=== PATIENT | male | born 1960 | race Caucasian/White ===

== ENCOUNTER 2017-11-29 08:31 | Inpatient (IN) | payer OTHER ==
--- NOTE | 2017-11-29 08:47 | PDOC ---
History of Present Illness - General Chief Complaint: Chest Pain Stated Complaint: CHEST PAIN Time Seen by Provider: 11/29/17 08:47 History Source: Patient Exam Limitations: No Limitations - History of Present Illness Initial Comments: 11/29/17 09:18 Mr. Carlin is a 57 yo M with a hx Past History - Past Medical History Allergies/Adverse Reactions: Allergies Allergy/AdvReac Type Severity Reaction Status Date / Time No Known Allergies Allergy Verified 11/29/17 08:54 Home Medications: Ambulatory Orders No Home Medications 0 dose .ROUTE UTDICT 05/24/12 Anemia: No Asthma: No Cancer: No COPD: No Diabetes: No HTN: No Hypercholesterolemia: No - Suicide/Smoking/Psychosocial Hx Smoking Status: No Smoking History: Never smoked Number of Cigarettes Smoked Daily: 0 Hx Alcohol Use: No Drug/Substance Use Hx: No Substance Use Type: None
[2017-11-29 08:58] VITALS: BMI 25.3
[2017-11-29] MEDS ORDERED: PANTOPRAZOLE SODIUM 40 MG VIAL IVPUSH ONE (09:17)
--- NOTE | 2017-11-29 09:28 | PDOC ---
Attending Attestation - HPI HPI: 11/29/17 09:35 The patient is a 57 year old male with no significant PMH of who presents to the emergency department with left sided chest pain for 2 days. The patient reports that he experienced some associated shortness of breath with his left sided chest pain. The patient states that his chest pain was relieved with rest and a nitro treatment. He states that it dissipated but returned again and lasted for about 8 minutes. The patient reports another episode of chest pain this morning and associated lightheadedness and weakness. The patient denies any episode like this in the past. He also reports kenya episodes of black stool 1 days ago. He denies any diarrhea or constipation. He states that his last colonoscopy was 1 year ago b which polyps were found. The patient denies any other symptoms. He denies any fever, chills, nausea, vomit or urinary symptoms. He denies headache,dizziness, abdominal pain, or earache. The patient denies any other complaints. Gastro: Dr. Rothman PCP: Dr. Thompson Documentation prepared by Payal Mcgill, acting as medical lab tech instructor for Yvan Valdez MD. <Payal Mcgill - Last Filed: 11/29/17 09:35> - Resident Resident Name: Earl Otto - ED Attending Attestation I have performed the following: I have examined & evaluated the patient, The case was reviewed & discussed with the resident, I agree w/resident's findings & plan, Exceptions are as noted - HPI HPI: 11/29/17 09:23 57 year old male c/ no pmh (have not seen Dr. Alexei Thompson in some time) presents with chest pain and SOB. Since yesterday, the patient has been endorsing intermittent chest pressure with SOB. Has been feeling lightheaded and general weakness. Denies fevers, chills. Noted several dark tarry stools since yesterday. Denies abdominal pain. Does drink vodka often. Last colonoscopy and endoscopy by Dr. Rothman reportedly 1 year ago, with some polyps. Pt took a nitroglycerin (given by a family member) and relief of chest pain. - Physicial Exam PE: 11/29/17 09:27 GENERAL: Awake, alert, and fully oriented, in no acute distress HEAD: No signs of trauma EYES: EOMI, sclera anicteric, conjunctiva clear ENT: Auricles normal inspection, hearing grossly normal, nares patent, Moist mucosa NECK: Normal ROM, supple LUNGS: Breath sounds equal, clear to auscultation bilaterally. No wheezes, and no crackles HEART: Regular rate and rhythm, normal S1 and S2, no murmurs, rubs or gallops ABDOMEN: Soft, nontender, No guarding, no rebound. No masses EXTREMITIES: Normal range of motion, no edema. No clubbing or cyanosis. No cords, erythema, or tenderness NEUROLOGICAL: Cranial nerves II through XII grossly intact. Normal speech, normal gait SKIN: Warm, Dry, normal turgor, no rashes or lesions noted. - Medical Decision Making 11/29/17 09:28 Vital Signs Temp Pulse Resp BP Pulse Ox 98.4 F 84 16 134/78 100 11/29/17 08:32 11/29/17 08:32 11/29/17 08:32 11/29/17 08:32 11/29/17 08:32 The patient will need to be rule out SC. Will need troponin, ECG, chest xray. Will hold off on aspirin until we clarify these dark tarry stools. Pt's symptoms may potentially be 2/2 to UGIB. Risk factor is alcohol. Will give protonix. Guiac stool. Admit. 11/29/17 10:12 CBC WBC 5.3 K/mm3 (4.0-10.0) 11/29/17 09:50 RBC 3.24 M/mm3 (4.00-5.60) L 11/29/17 09:50 Hgb 11.5 GM/dL (11.7-16.9) L 11/29/17 09:50 Hct 32.6 % (35.4-49) L D 11/29/17 09:50 MCV 100.5 fl (80-96) H 11/29/17 09:50 MCH 35.3 pg (25.7-33.7) H 11/29/17 09:50 MCHC 35.1 g/dl (32.0-35.9) 11/29/17 09:50 RDW 12.4 % (11.9-15.9) 11/29/17 09:50 Plt Count 138 K/MM3 (134-434) 11/29/17 09:50 MPV 9.4 fl (7.5-11.1) 11/29/17 09:50 Absolute Neuts (auto) 3.5 # 11/29/17 09:50 Neutrophils % 67.4 % (42.8-82.8) 11/29/17 09:50 Lymphocytes % 23.6 % (8-40) 11/29/17 09:50 Monocytes % 5.5 % (3.8-10.2) 11/29/17 09:50 Eosinophils % 2.5 % (0-4.5) 11/29/17 09:50 Basophils % 1.0 % (0-2.0) 11/29/17 09:50 Nucleated RBC % 0 % (0-0) 11/29/17 09:50 Guiac positive. Start protonix drip. Consult Dr. Rothman. Admit. 11/29/17 10:[address] Rothman. He will see patient as an inpatient. 11/29/17 11:21 Will defer on aspirin given UGIB <Yvan Valdez - Last Filed: 11/29/17 11:21> Heart Score/ECG Review - History History: Moderately suspicious - Electrocardiogram EKG: Non specific repolarization disturbance - Age Age: 45-65 - Risk Factors Based on the list above the patient has:: 1-2 risk factors #1 ECG reviewed & interpreted by me at: 08:40 11/29/17 09:23 NSR 75, no std/alex, T wave flat aVL, TWI V2, normal axis, normal intervals, QTC 419 msec <Yvan Valdez - Last Filed: 11/29/17 11:21>
[2017-11-29 09:57] LABS: EOS % 2.5 % (0-4.5); HEMATOCRIT 32.6 % (35.4-49); HEMOGLOBIN 11.5 GM/dL (11.7-16.9); LYMPH % 23.6 % (8-40); MCH 35.3 pg (25.7-33.7); MCHC 35.1 g/dl (32.0-35.9); MEAN CELL VOLUME 100.5 fl (80-96); MEAN PLT VOLUME 9.4 fl (7.5-11.1); MONO % 5.5 % (3.8-10.2); NEUT % 67.4 % (42.8-82.8); PLATELET COUNT 138 K/MM3 (134-434); RBC 3.24 M/mm3 (4.00-5.60); RDW 12.4 % (11.9-15.9); WHITE BLOOD COUNT 5.3 K/mm3 (4.0-10.0)
[2017-11-29 10:24] LABS: INR 0.91 (0.83-1.09); PROTHROMBIN TIME (PATIENT) 10.3 SEC (9.7-13.0)
[2017-11-29 10:28] LABS: ALBUMIN 3.4 g/dl (3.4-5.0); ANION GAP 6 (8-16); BILIRUBIN,TOTAL 0.5 mg/dL (0.2-1.0); BLOOD UREA NITROGEN 25 mg/dL (7-18); CALCIUM 8.4 mg/dL (8.5-10.1); CHLORIDE 109 mmol/L (98-107); CO2 27 mmol/L (21-32); CREATININE 0.6 mg/dL (0.7-1.3); GLUCOSE,RANDOM 98 mg/dL (74-106); SGPT/ALT 31 U/L (12-78); SODIUM 142 mmol/L (136-145); TOT PROT 6.3 g/dl (6.4-8.2)
[2017-11-29 10:31] LABS: ALK PHOS 50 U/L (45-117)
[2017-11-29 10:33] LABS: POTASSIUM 4.8 mmol/L (3.5-5.1); SGOT/AST 26 U/L (15-37)
--- NOTE | 2017-11-29 11:20 | PDOC ---
*Physical Exam - Vital Signs Last Vital Signs Temp Pulse Resp BP Pulse Ox 98.4 F 84 16 134/78 100 11/29/17 08:32 11/29/17 08:32 11/29/17 08:32 11/29/17 08:32 11/29/17 08:32 ED Treatment Course - LABORATORY CBC & Chemistry Diagram: 11/29/17 09:50 11/29/17 09:50 - ADDITIONAL ORDERS Additional order review: Laboratory Results 11/29/17 11/29/17 11/29/17 09:55 09:50 09:50 PT with INR INR Sodium Potassium Chloride Carbon Dioxide Anion Gap BUN Creatinine Creat Clearance w eGFR Random Glucose Calcium Total Bilirubin AST ALT Alkaline Phosphatase Creatine Kinase Troponin I Total Protein Albumin Stool Occult Blood Positive Blood Type O POSITIVE O POSITIVE Antibody Screen Negative 11/29/17 11/29/17 09:50 09:50 PT with INR 10.30 INR 0.91 Sodium 142 Potassium 4.8 Chloride 109 H Carbon Dioxide 27 Anion Gap 6 L BUN 25 H Creatinine 0.6 L Creat Clearance w eGFR > 60 Random Glucose 98 Calcium 8.4 L Total Bilirubin 0.5 AST 26 D ALT 31 D Alkaline Phosphatase 50 Creatine Kinase 83 Troponin I < 0.02 Total Protein 6.3 L Albumin 3.4 Stool Occult Blood Blood Type Antibody Screen 11/29/17 09:50 RBC 3.24 L MCV 100.5 H MCHC 35.1 RDW 12.4 MPV 9.4 Neutrophils % 67.4 Lymphocytes % 23.6 Monocytes % 5.5 Eosinophils % 2.5 Basophils % 1.0 *DC/Admit/Observation/Transfer Diagnosis at time of Disposition: UGIB (upper gastrointestinal bleed) Chest pain Qualifiers: Chest pain type: unspecified Qualified Code(s): R07.9 - Chest pain, unspecified - Discharge Dispostion Condition at time of disposition: Stable Decision to Admit order: Yes - Referrals Referrals: Alexei Thompson MD [Primary Care Provider] - - Patient Instructions - Post Discharge Activity
[2017-11-29] MEDS ORDERED: PANTOPRAZOLE SODIUM 40 MG VIAL ONE ×5 (11:28→22:55)
--- NOTE | 2017-11-29 11:55 | HP ---
CHIEF COMPLAINT: left sided chest pain and tarry stools PCP: used to follow with Dr. Thompson GI: Dr. Rothman HISTORY OF PRESENT ILLNESS: 57 yr old with no significant pmhx (lack of recent medical follow-up) presents to ED with pressure-like continuous nonradiating left sided chest pain, dizziness, and sob associated with black tarry stools since yesterday morning. He had 5 episodes of tarry stool yesterday and one episode this morning prior to coming to ED, no episodes in ED. chest pain is worse with exertion, especially getting up and walking around, feels more comfortable when laying in bed. has not been able to eat anything due to loss of appetite since yesterday morning. daughter gave him 1 dose of nitro sl from her mother's medications which helped with the chest pain but did not completely relieve the pain. has been in his usual state of health as of Wednesday. denies recent NSAID use, abdominal pain/cramping, diarrhea, constipation, vomiting, nausea, headache, blurry vision, fever. ER course was notable for: (1) consult called to Dr. Rothman who knows the pt, will see pt as inpatient (2) consult called to dr. Gordon (3) protonix drip Recent Travel: none PAST MEDICAL HISTORY: no diagnosed medical hx, no previous hx of similar episodes. PAST SURGICAL HISTORY: had an endoscopy/colonoscopy [address] rothman and recalls being told he had polyps. 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 Smoking: quit 8 yrs ago, smoked 1/2pk per day staring at age 15 Alcohol: drinks 1 shot of vodka daily, last drink Wednesday night. does not routinely get intoxicated, has not been intoxicated in last 3 months Drugs: no illicit drug use. Family History: father from lung cancer at age 62, dx'd at age 61, he was a chronic smoker. denies GI cancers, HTN, DM in the family. Allergies No Known Allergies Allergy (Verified 11/29/17 08:54) HOME MEDICATIONS: Home Medications Medication Instructions Recorded No Home Medications 0 dose .ROUTE UTDICT 05/24/12 REVIEW OF SYSTEMS CONSTITUTIONAL: Present: loss of appetite, pt says he doesn't feel like he has lost weight but daughtet at bedside says he looks thinner in the last 3 months. Absent: fever, chills, diaphoresis, generalized weakness, malaise, weight change HEENT: Present: eye pain- feels like he has dry eyes since yesterday Absent: rhinorrhea, nasal congestion, throat pain, throat swelling, difficulty swallowing, mouth swelling, ear pain, visual changes CARDIOVASCULAR: Present:chest pain,lightheadedness, Absent: syncope, palpitations, irregular heart rate, peripheral edema RESPIRATORY: Present: shortness of breath,dyspnea with exertion Absent: cough, , orthopnea, wheezing, stridor, hemoptysis GASTROINTESTINAL: Present: melena, Absent: abdominal pain, abdominal distension, nausea, vomiting, diarrhea, constipation, hematochezia GENITOURINARY: Absent: dysuria, frequency, urgency, hesitancy, hematuria, flank pain, MUSCULOSKELETAL: Absent: myalgia, arthralgia, joint swelling, back pain, neck pain SKIN: Absent: rash, itching, pallor HEMATOLOGIC/IMMUNOLOGIC: Absent: easy bleeding, easy bruising, lymphadenopathy, frequent infections ENDOCRINE: Absent: unexplained weight gain, unexplained weight loss, heat intolerance, cold intolerance NEUROLOGIC: Absent: headache, focal weakness or paresthesias, dizziness, unsteady gait, seizure, mental status changes, bladder or bowel incontinence PHYSICAL EXAMINATION Vital Signs - 24 hr 11/29/17 08:32 Temperature 98.4 F Pulse Rate 84 Respiratory 16 Rate Blood Pressure 134/78 O2 Sat by Pulse 100 Oximetry (%) GENERAL: Awake, alert, and fully oriented, in no acute distress. HEAD: Normal with no signs of trauma. EYES: Pupils equal, round and reactive to light, extraocular movements intact, sclera anicteric, conjunctiva clear. No lid lag. EARS, NOSE, THROAT: Ears normal, nares patent, oropharynx clear without exudates. Moist mucous membranes. NECK: Normal range of motion, supple without lymphadenopathy, JVD, or masses. LUNGS: Breath sounds equal, clear to auscultation bilaterally. No wheezes, and no crackles. No accessory muscle use. HEART: Regular rate and rhythm, normal S1 and S2 without murmur, rub or gallop. ABDOMEN: Soft, nontender, not distended, normoactive bowel sounds, no guarding, no rebound, no masses. No hepatomegaly or splenomegaly. MUSCULOSKELETAL: Normal range of motion at all joints. No bony deformities or tenderness. No CVA tenderness. UPPER EXTREMITIES: 2+ radial pulses, warm, well-perfused. No cyanosis. No clubbing. No peripheral edema. LOWER EXTREMITIES: 2+ dp pulses, warm, well-perfused. No calf tenderness. No peripheral edema. NEUROLOGICAL: Cranial nerves II-XII intact. Normal speech. facial symmetry, 5/ 5 handgrip, 5/5 strength with extension and flexion in all upper and lower extremity groups.2+ DTR in biceps and patellar. PSYCHIATRIC: Cooperative. Good eye contact. Appropriate mood and affect. SKIN: Warm, dry, normal turgor, no rashes or lesions noted, normal capillary refill. Laboratory Results - last 24 hr 11/29/17 11/29/17 11/29/17 09:50 09:50 09:50 WBC 5.3 RBC 3.24 L Hgb 11.5 L Hct 32.6 L D MCV 100.5 H MCH 35.3 H MCHC 35.1 RDW 12.4 Plt Count 138 MPV 9.4 Absolute Neuts (auto) 3.5 Neutrophils % 67.4 Lymphocytes % 23.6 Monocytes % 5.5 Eosinophils % 2.5 Basophils % 1.0 Nucleated RBC % 0 PT with INR 10.30 INR 0.91 Sodium 142 Potassium 4.8 Chloride 109 H Carbon Dioxide 27 Anion Gap 6 L BUN 25 H Creatinine 0.6 L Creat Clearance w eGFR > 60 Random Glucose 98 Calcium 8.4 L Total Bilirubin 0.5 AST 26 D ALT 31 D Alkaline Phosphatase 50 Creatine Kinase 83 Troponin I < 0.02 Total Protein 6.3 L Albumin 3.4 Stool Occult Blood Blood Type Antibody Screen 11/29/17 11/29/17 11/29/17 09:50 09:50 09:55 WBC RBC Hgb Hct MCV MCH MCHC RDW Plt Count MPV Absolute Neuts (auto) Neutrophils % Lymphocytes % Monocytes % Eosinophils % Basophils % Nucleated RBC % PT with INR INR Sodium Potassium Chloride Carbon Dioxide Anion Gap BUN Creatinine Creat Clearance w eGFR Random Glucose Calcium Total Bilirubin AST ALT Alkaline Phosphatase Creatine Kinase Troponin I Total Protein Albumin Stool Occult Blood Positive Blood Type O POSITIVE O POSITIVE Antibody Screen Negative ASSESSMENT/PLAN: 57 yr old man with no recent medical follow-up presents with chest pain and melena for 1 day admitted to telemetry for further management. #Melena with macrocytic anemia and FOBT+, likely UGI from possible etiliogies: PUD/malignancy/variceal bleed - macrocytosis could be from ETOH use as well. - iron studies, vit b12, Type&screen, trend h/h q6h - consult GI, may need scope pending r.o ACS as hgb currently >7, pending repeat level - protonix drip, npo, maintanence IVF D5-NS @75cc/hr - OOB wth assistance as he is at risk for syncope #Chest pain r.o ACS, possibly from blood loss as well - new ekg changes compared to previous, repeat ekg for dynamic changes, trend trop x2 - echo ordered - discussed with , agrees with telemetry monitoring, trending trops and echo for further evaluation. - check lipid profile and A1c to risk stratify - continuous cardiac monitoring DVT; scds due to acute GI bleed diet: NPO Visit type - Emergency Visit Emergency Visit: Yes ED Registration Date: 11/29/17 Care time: The patient presented to the Emergency Department on the above date and was hospitalized for further evaluation of their emergent condition. - New Patient This patient is new to me today: Yes Date on this admission: 11/29/17 - Critical Care Critical Care patient: No Hospitalist Screening - Colonoscopy Questionnaire Colonoscopy Questionnaire: Colonoscopy Questionnaire - Patient: 50 - 75 years old and never had a screening colonoscopy: No History of colon or rectal polyps, or CA: Yes History of IBD, Crohn's disease or UC: No History of abdominal radiation therapy as a child: No - Relative: 1 with colon or rectal CA, or polyps at age 60 or younger: No Colon or rectal CA diagnosed at age 45 or younger: No Multiple relatives with colon or rectal CA: No - Outcome: Screening Result: Positive Screen
[2017-11-29] MEDS: PANTOPRAZOLE SODIUM 80 MG in SODIUM CHLORIDE 100 ML IVPB SCH ×2 (12:40→23:12)
[2017-11-29] MEDS ORDERED: DEXTROSE 5%-0.45% SALINE 1,000 ML IV SCH (13:30)
--- NOTE | 2017-11-29 13:50 | PN ---
Teaching Attending Note Name of Resident: Nunu Marks ATTENDING PHYSICIAN STATEMENT I saw and evaluated the patient. I reviewed the resident's note and discussed the case with the resident. I agree with the resident's findings and plan as documented with exceptions below. SUBJECTIVE: Daughter at bedside, assisting in interview 57 yom, no PCP in [address] ([address] Thompson earlier), EGD/colonscopy [address] 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 Overall symptoms have been constant, with some worsening while sleeping on the same side. His symptoms have improved but not fully resolved while in the ED. Also 5 episodes of dark tarry stools, soft since yesterday morning but denies any nausea, vomiting, abdominal pain, fevers or chills. Drinks 1 shot of vodka daily , last drink 2 days ago but no prior NSAIDs use or similar history. Currently chest pain improved and reported dizziness when sat up. No further BM in the ED. 12 point ROS done, neg except above. OBJECTIVE: Vital Signs Period Temp Pulse Resp BP Sys/Cross Pulse Ox Last 24 Hr 98.4 F 84 16 134/78 100 Intake & Output 11/26/17 11/27/17 11/28/17 11/29/17 23:59 23:59 23:59 23:59 Weight 162 lb GENERAL: Awake, alert, and fully oriented, in no acute distress. HEAD: Normal with no signs of trauma. EYES: Pupils equal, round and reactive to light, extraocular movements intact, sclera anicteric, conjunctiva clear. No lid lag. EARS, NOSE, THROAT: Ears normal, nares patent, oropharynx clear without exudates. Moist mucous membranes. NECK: soft, supple, no JVD LUNGS: Breath sounds equal, clear to auscultation bilaterally. No wheezes, and no crackles. No accessory muscle use. HEART: S1S2 regular, no rubs or gallops appreciated ABDOMEN: Soft, nontender, not distended, normoactive bowel sounds, no guarding, no rebound, no masses. MUSCULOSKELETAL: Normal range of motion at all joints. No bony deformities or tenderness. No CVA tenderness. UPPER EXTREMITIES: 2+ pulses, warm, well-perfused. No cyanosis. No clubbing. No peripheral edema. LOWER EXTREMITIES: 2+ pulses, warm, well-perfused. No calf tenderness. No peripheral edema. NEUROLOGICAL: Cranial nerves II-XII intact. Normal speech. Gait deferred as patient dizzy on sitting up PSYCHIATRIC: Cooperative. Good eye contact. Appropriate mood and affect. SKIN: Warm, dry, normal turgor, no rashes or lesions noted, normal capillary refill. Home Medications Medication Instructions Recorded No Home Medications 0 dose .ROUTE UTDICT 05/24/12 Active Medications Pantoprazole Sodium 80 mg/ (Sodium Chloride) 100 mls @ 10 mls/hr IVPB Q10H BRYANNA Last Admin: 11/29/17 12:40 Dose: 10 mls/hr Dextrose/Sodium Chloride (D5-1/2ns -) 1,000 mls @ 75 mls/hr IV [facility] Laboratory Results - last 24 hr 11/29/17 11/29/17 11/29/17 09:50 09:50 09:50 WBC 5.3 RBC 3.24 L Hgb 11.5 L Hct 32.6 L D MCV 100.5 H MCH 35.3 H MCHC 35.1 RDW 12.4 Plt Count 138 MPV 9.4 Absolute Neuts (auto) 3.5 Neutrophils % 67.4 Lymphocytes % 23.6 Monocytes % 5.5 Eosinophils % 2.5 Basophils % 1.0 Nucleated RBC % 0 Retic Count PT with INR 10.30 INR 0.91 Sodium 142 Potassium 4.8 Chloride 109 H Carbon Dioxide 27 Anion Gap 6 L BUN 25 H Creatinine 0.6 L Creat Clearance w eGFR > 60 Random Glucose 98 Calcium 8.4 L Ferritin Total Bilirubin 0.5 AST 26 D ALT 31 D Alkaline Phosphatase 50 Creatine Kinase 83 Troponin I < 0.02 Total Protein 6.3 L Albumin 3.4 Vitamin B12 Stool Occult Blood Blood Type Antibody Screen 11/29/17 11/29/17 11/29/17 09:50 09:50 09:50 WBC RBC Hgb Hct MCV MCH MCHC RDW Plt Count MPV Absolute Neuts (auto) Neutrophils % Lymphocytes % Monocytes % Eosinophils % Basophils % Nucleated RBC % Retic Count PT with INR INR Sodium Potassium Chloride Carbon Dioxide Anion Gap BUN Creatinine Creat Clearance w eGFR Random Glucose Calcium Ferritin Total Bilirubin AST ALT Alkaline Phosphatase Creatine Kinase Troponin I Total Protein Albumin Vitamin B12 Cancelled Stool Occult Blood Blood Type O POSITIVE O POSITIVE Antibody Screen Negative 11/29/17 11/29/17 11/29/17 09:50 09:50 09:55 WBC RBC Hgb Hct MCV MCH MCHC RDW Plt Count MPV Absolute Neuts (auto) Neutrophils % Lymphocytes % Monocytes % Eosinophils % Basophils % Nucleated RBC % Retic Count 2.14 H PT with INR INR Sodium Potassium Chloride Carbon Dioxide Anion Gap BUN Creatinine Creat Clearance w eGFR Random Glucose Calcium Ferritin Cancelled Total Bilirubin AST ALT Alkaline Phosphatase Creatine Kinase Troponin I Total Protein Albumin Vitamin B12 Stool Occult Blood Positive Blood Type Antibody Screen EKG NSR, QS in III, T inversion in V2, no acute ST-T changes CXR - no acute process ASSESSMENT AND PLAN: 57 yom with no recent follow up, comes with chest pain and dark tarry stools. -Chest pain, with some typical features, r/o ACS, ?from ongoing bleed and anemia -GI bleed, PUD vs alcohol gastritis vs variceal on differential, r/o malignancy , less likely to be diverticular bleed based on presentation Plan: Repeat EKG, telemetry, cycle cardiac enzymes. 2D echo. Cardiology consult with Dr. Gordon 2 Large bore IV's. Protonix drip, NPO, D5NS, GI Dr. Rothman consulted from the ED, follow up recs. H/h q8h. SCDs in bed Bedrest with BRP with assist for now. Dispo admit to telemetry. Plan discussed with patient and daughter at bedside, all questions answered. Total admit time spent 55 min.
--- NOTE | 2017-11-29 15:25 | CON.CARD ---
Consult Consult Specialty:: Cardiology Referred by:: Dr. Thompson Reason for Consultation:: Chest Pain - History of Present Illness Chief Complaint: Melena and chest pain History of Present Illness: 57M history obtained at bedside from daughter who is a PA. PMH of hyperlipidemia presents to ER with 2 days of melena and central substernal positional CP worse when sitting up, better laying down. +Exertional dizziness x 24 hours. Denies palpitations. Denies LE edema. Denies PND/orthopnea. Denies nausea, diaphoresis. No fever, chills, cough. - History Source History Provided By: Family Member Limitations to Obtaining History: Language Barrier - Past Medical History Cardio/Vascular: Yes: Hyperlipdemia Pulmonary: No: Asthma, Bronchitis, Cancer, COPD, O2 Dependent, Pneumonia, Previously Intubated, Pulmonary Embolus, Pulmonary Fibrosis, Sleep Apnea, Other Gastrointestinal: Yes: Other (Colonic polyps) Hepatobiliary: No: Cirrhosis, Cholelithiasis, Cholecystitis, Choledocholithiasis , Hepatitis A, Hepatitis B, Hepatitis C, Other Renal/: No: Renal Failure, Renal Inusuff, BPH, Cancer, Hematuria, Hemodialysis , Neurogenic Bladder, Renal Calculi, UTI, Other Heme/Onc: No: Anemia, B12 Deficiency, Bleeding Disorder, Cancer, Current Chemotherapy, Current Radiation Therapy, Hemochromatosis, Hypercoaguable State, Myeloproliferative Synd, Sickle Cell Disease, Sickle Cell Trait, Thrombocytopenia, Other Infectious Disease: No: AIDS, C-Diff, Herpes Zoster, HIV, MRSA, STD's, Tuberculosis, VREF, Other Psych: No: Addictions, Anxiety, Bipolar, Depression, Panic, Psychosis, Schizophrenia, Other Musculoskeletal: No: Bursitis, Chronic low back pain, Hemiparesis, Hemiplegia, Osteoarthritis, Paraplegia, Other ENT: No: Allergic Rhinitis, Sinusitis, Other Endocrine: No: [place]'s Disease, [place]'s Disease, Diabetes Insipidus, Diabetes Mellitus, Hyperparathyroidism, Hyperthyroidism, Hypothyroidism, Osteopenia, SIADH, Other Dermatology: No: Basal Cell, Cellulitis, Eczema, Melanoma, Psoriasis, Squamous Cell, Other - Alcohol/Substance Use Hx Alcohol Use: Yes (1 shot Vodka daily) History of Substance Use: reports: None - Smoking History Smoking history: Former smoker (quit 6 years ago) Have you smoked in the past 12 months: No Aproximately how many cigarettes per day: 0 If you are a former smoker, when did you quit?: 2012 - Social History Usual Living Arrangement: Assisted Living 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 Place of : Other History of Recent Travel: No Home Medications - Allergies Allergies/Adverse Reactions: Allergies Allergy/AdvReac Type Severity Reaction Status Date / Time No Known Allergies Allergy Verified 11/29/17 08:54 - Home Medications Home Medications: Ambulatory Orders No Home Medications 0 dose .ROUTE UTDICT 05/24/12 Family Disease History - Family Disease History Family History: Unremarkable (no early CAD or SCD) Review of Systems Findings/Remarks: See HPI - Review of Systems Constitutional: reports: No Symptoms HENT: reports: No Symptoms Neck: reports: No Symptoms Cardiovascular: reports: Chest Pain (positional, constant. Worse sitting up) Gastrointestinal: reports: Melena (x 1 day) Genitourinary: denies: No Symptoms, Burning, Discharge, Dysuria, Flank Pain, Frequency, Hematuria, Incontinence, Lesions, Menses, Pain, Testicular Mass, Testicular Pain, Testicular Swelling, Urgency, Vaginal Bleeding, Other Breasts: denies: No Symptoms Reported, See HPI, Breast Implants, Discharge from Nipple, Lumps, Pain, Skin Changes, Other Musculoskeletal: denies: No Symptoms, Back Pain, Crepitus, Decreased ROM, Extremity Pain, Joint Pain, Joint Swelling, Muscle Pain, Muscle Cramps, Muscle Weakness, Other Integumentary: denies: No Symptoms, Blister, Bruising, Change in Color, Eczema, Erythema, Incision, Lesions, Lump, Pallor, Pruritis, Rash, Wound, Other Neurological: denies: No Symptoms, Change in LOC, Change in Speech, Confusion, Dizziness, Headache, Incoordination, Numbness, Parasthesia, Pre-Existing Deficit , Seizure, Syncope, Tremors, Unsteady Gait, Weakness, Other Endocrine: denies: No Symptoms, Excessive Sweating, Flushing, Increased Hunger, Increased Thirst, Intolerance to Cold, Intolerance to Heat, Unexplained Weight Gain, Unexplained Weight Loss, Other Hematology/Lymphatic: denies: No Symptoms, Easily Bruised, Excessive Bleeding, Swollen Glands, Other Psychiatric: denies: No Symptoms, Altered Sleep Pattern, Anxiety, Depression, Hallucinations, Panic, Paranoia, Suicidal, Other - Risk Factors Known Risk Factors: Yes: Hypercholesterolemia, Smoking Vital Signs: Vital Signs Temperature 98.4 F 08/06/18 08:32 Pulse Rate 76 11/29/17 11:55 Respiratory Rate 18 11/29/17 11:55 Blood Pressure 128/70 11/29/17 11:55 O2 Sat by Pulse Oximetry (%) 98 11/29/17 11:55 Constitutional: Yes: No Distress, Calm Eyes: Yes: Conjunctiva Clear, EOM Intact HENT: Yes: Normocephalic Neck: Yes: Trachea Midline Respiratory: Yes: CTA Bilaterally (no rales or wheezing) Gastrointestinal: Yes: Soft (no rebound or guarding tenderness) Cardiovascular: Yes: Regular Rate and Rhythm JVD: No Carotid Bruit: No PMI: Non-Displaced Heart Sounds: Yes: S1, S2 (RRR. No M/R/G) Edema: No Neurological: Yes: Alert, Oriented ...Motor Strength: WNL Psychiatric: Yes: WNL - Other Data Labs, Other Data: CBC, BMP 11/29/17 09:50 11/29/17 09:50 INR, PTT INR 0.91 (0.83-1.09) 11/29/17 09:50 Troponin, BNP 11/29/17 09:50 Troponin I < 0.02 Troponin, BNP 11/29/17 09:50 Troponin I < 0.02 NSR with non-specific T wave inversion V2 Echo: Pending Imaging - Results Chest X-ray: Report Reviewed EKG: Image Reviewed Problem List - Problems (1) UGIB (upper gastrointestinal bleed) Code(s): K92.2 - GASTROINTESTINAL HEMORRHAGE, UNSPECIFIED (2) Chest pain Code(s): R07.9 - CHEST PAIN, UNSPECIFIED Qualifiers: Chest pain type: unspecified Qualified Code(s): R07.9 - Chest pain, unspecified Assessment/Plan IMP: Melena Chest pain, atypical REC: 1. Atypical chest pain: -positional, constant with no acute ST changes. Present for last 24 hours with initial TnI negative. -Doubt coronary: likely related to GI pathology--> gastritis, perhaps peptic ulcer with referred pain. 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 ECG not consistent with pericarditis -Check echo -Cycle cardiac enzymes -Serial ECGs -Telemetry monitoring -GI eval 2. Melena: -New onset -Follow H/H - GI consult -PPI, NPO Will follow Thank you
[2017-11-29 16:46] LABS: BASO % 0.7 % (0-2.0); EOS % 2.1 % (0-4.5); HEMATOCRIT 30.5 % (35.4-49); HEMOGLOBIN 10.9 GM/dL (11.7-16.9); LYMPH % 28.8 % (8-40); MCH 35.7 pg (25.7-33.7); MCHC 35.6 g/dl (32.0-35.9); MEAN CELL VOLUME 100.5 fl (80-96); MEAN PLT VOLUME 9.2 fl (7.5-11.1); MONO % 5.1 % (3.8-10.2); NEUT % 63.3 % (42.8-82.8); PLATELET COUNT 136 K/MM3 (134-434); RBC 3.04 M/mm3 (4.00-5.60); RDW 12.5 % (11.9-15.9); WHITE BLOOD COUNT 5.2 K/mm3 (4.0-10.0)
--- NOTE | 2017-11-29 16:47 | EKG ---
Test Reason : Blood Pressure : / mmHG Vent. Rate : 073 BPM Atrial Rate : 073 BPM P-R Int : 158 ms QRS Dur : 092 ms QT Int : 392 ms P-R-T Axes : 032 -08 034 degrees QTc Int : 431 ms NORMAL SINUS RHYTHM NORMAL ECG WHEN COMPARED WITH ECG OF 24-MAY-2012 11:36, NO SIGNIFICANT CHANGE WAS FOUND Confirmed by ERMELINDA TRONCOSO MD ([id number]) on 11/29/2017 4:46:51 PM Referred By: JESUS ALBERTO PINEDA Confirmed By:ERMELINDA TRONCOSO MD
[2017-11-29] MEDS: DEXTROSE 5%-NORMAL SALINE 1,000 ML IV SCH (16:52)
[2017-11-29 17:05] LABS: CHOLESTEROL 182 mg/dL (50-200); HDL CHOLESTEROL 55 mg/dL (40-60); TRIGLYCERIDES 122 mg/dL (35-160)
--- NOTE | 2017-11-29 22:06 | CON.GI ---
Consult Consult Specialty:: Gastroenterology Referred by:: Dr Thompson Reason for Consultation:: GI bleed - History of Present Illness Chief Complaint: Melena, lightheaded and chest pain History of Present Illness: 57M with h/o duodenal ulcer associated with H. pylori found at EGD in my office at EGD on 08/18/16 developed melena yesterday morning. He also had GERD above a hiatal hernia at that time. He developed dizziness upon standing and sitting and had to lave Mass yesterday. After several episodes of blood stools that got increasingly looser he came to the ER. He denies hematemesis. He was treated for the HP last year but did return to [facility] earlier this year to bury his mother and may have reacquired it. He does not smoke but does have a highball with dinner nightly. He denies abdominal pain but did sleep awkwardly and did develop a musculoskeletal type of lower retrosternal pain. He has already been evaluated by Dr. Odonnell who does not feel that it is cardiac in origin. He did have a cecal adenoma removed at colonoscopy in 2011 and had GERD above a hiatal hernia found at EGD in 2007 when he was treated for HP for the first time. He had a rectal hyperplastic polyp removed during his last colonoscopy on 08/25/16. - History Source History Provided By: Patient Limitations to Obtaining History: No Limitations - Past Medical History Cardio/Vascular: Yes: Hyperlipdemia, Other (Rheumatic fever as a child) Gastrointestinal: Yes: Gastritis (H pylori gastritis 2007, 2016), Peptic Ulcer Disease (Duodenal bulb ulcer at EGD 08/18/16), Other (Colonic polyps including cecal adenoma 2011) Additional Medical History: strabismus - Past Surgical History Past Surgical History: Yes: Arthrosocopy (knee), Colonoscopy, Upper Endoscopy Additional Surgical History: left thumb base skin flap. left shoulder surgery - Alcohol/Substance Use Hx Alcohol Use: Yes (1 shot Vodka daily) History of Substance Use: reports: None - Smoking History Smoking history: Former smoker (quit 6 years ago) Have you smoked in the past 12 months: No Aproximately how many cigarettes per day: 0 If you are a former smoker, when did you quit?: 2011 - Social History Usual Living Arrangement: With Spouse ADL: Independent Occupation: [employer] Former Place of : Other ([place]) Came to [place] (year[place] age 39 History of Recent Travel: Yes ([place] earlier this year) Home Medications - Allergies Allergies/Adverse Reactions: Allergies Allergy/AdvReac Type Severity Reaction Status Date / Time No Known Allergies Allergy Verified 11/29/17 08:54 - Home Medications Home Medications: Ambulatory Orders No Home Medications 0 dose .ROUTE UTDICT 05/24/12 Family Disease History - Family Disease History Family Disease History: CA: Father (lung cancer), Respiratory: Mother (astham, gastric ulcer) Review of Systems - Review of Systems Constitutional: reports: Diaphoresis, Other (orthostatic dizziness) Eyes: reports: No Symptoms HENT: reports: No Symptoms Neck: reports: No Symptoms Cardiovascular: reports: Chest Pain Respiratory: reports: No Symptoms Gastrointestinal: reports: Melena Genitourinary: reports: No Symptoms Musculoskeletal: reports: No Symptoms Integumentary: reports: No Symptoms Neurological: reports: Dizziness, Headache Physical Exam-GI Vital Signs: Vital Signs Temperature 98.4 F 11/29/17 08:32 Pulse Rate 76 11/29/17 11:55 Respiratory Rate 18 11/29/17 11:55 Blood Pressure 128/70 11/29/17 11:55 O2 Sat by Pulse Oximetry (%) 98 11/29/17 11:55 CBC,CMP WBC 5.2 K/mm3 (4.0-10.0) 11/29/17 16:35 RBC 3.04 M/mm3 (4.00-5.60) L 11/29/17 16:35 Hgb 10.9 GM/dL (11.7-16.9) L 11/29/17 16:35 Hct 30.5 % (35.4-49) L 11/29/17 16:35 MCV 100.5 fl (80-96) H 11/29/17 16:35 MCH 35.7 pg (25.7-33.7) H 11/29/17 16:35 MCHC 35.6 g/dl (32.0-35.9) 11/29/17 16:35 RDW 12.5 % (11.9-15.9) 11/29/17 16:35 Plt Count 136 K/MM3 (134-434) 11/29/17 16:35 MPV 9.2 fl (7.5-11.1) 11/29/17 16:35 Absolute Neuts (auto) 3.3 # 11/29/17 16:35 Neutrophils % 63.3 % (42.8-82.8) 11/29/17 16:35 Lymphocytes % 28.8 % (8-40) D 11/29/17 16:35 Monocytes % 5.1 % (3.8-10.2) 11/29/17 16:35 Eosinophils % 2.1 % (0-4.5) 11/29/17 16:35 Basophils % 0.7 % (0-2.0) 11/29/17 16:35 Nucleated RBC % 0 % (0-0) 11/29/17 16:35 Retic Count 2.14 % (0.5-1.5) H 11/29/17 09:50 Sodium 142 mmol/L (136-145) 11/29/17 09:50 Potassium 4.8 mmol/L (3.5-5.1) 11/29/17 09:50 Chloride 109 mmol/L (98-107) H 11/29/17 09:50 Carbon Dioxide 27 mmol/L (21-32) 11/29/17 09:50 Anion Gap 6 (8-16) L 11/29/17 09:50 BUN 25 mg/dL (7-18) H 11/29/17 09:50 Creatinine 0.6 mg/dL (0.7-1.3) L 11/29/17 09:50 Creat Clearance w eGFR > 60 (>60) 11/29/17 09:50 Random Glucose 98 mg/dL (74-106) 11/29/17 09:50 Calcium 8.4 mg/dL (8.5-10.1) L 11/29/17 09:50 Ferritin 306.5 ng/ml (16.4-293.9) H 11/29/17 09:50 Total Bilirubin 0.5 mg/dL (0.2-1.0) 11/29/17 09:50 AST 26 U/L (15-37) D 11/29/17 09:50 ALT 31 U/L (12-78) D 11/29/17 09:50 Alkaline Phosphatase 50 U/L (45-117) 11/29/17 09:50 Creatine Kinase 55 IU/L (39-308) 11/29/17 16:35 Troponin I < 0.02 ng/ml (0.00-0.05) 11/29/17 16:35 Total Protein 6.3 g/dl (6.4-8.2) L 11/29/17 09:50 Albumin 3.4 g/dl (3.4-5.0) 11/29/17 09:50 Triglycerides 122 mg/dL (35-160) 11/29/17 16:35 Cholesterol 182 mg/dL (50-200) 11/29/17 16:35 Total LDL Cholesterol 115 mg/dL (5-100) H 11/29/17 16:35 HDL Cholesterol 55 mg/dL (40-60) 11/29/17 16:35 Vitamin B12 297 pg/ml (180-914) 11/29/17 09:50 Current Medications Generic Name Dose Route Start Last Admin Trade Name Freq PRN Reason Stop Dose Admin Pantoprazole Sodium 80 mg/ 100 mls @ 10 mls/hr 11/29/17 10:15 11/29/17 12:40 Sodium Chloride IVPB 10 mls/hr Q10H BRYANNA Administration 8 MG/HR Dextrose/Sodium Chloride 1,000 mls @ 75 mls/hr 11/29/17 14:15 11/29/17 16:52 D5-Ns - IV 75 mls/hr ASDIR BRYANNA Administration Constitutional: Yes: Calm Eyes: Yes: Conjunctiva Clear HENT: Yes: Normocephalic Neck: Yes: Trachea Midline Cardiovascular: Yes: Regular Rate and Rhythm, S2 (normal) Respiratory: Yes: CTA Bilaterally Gastrointestinal Inspection: Yes: WNL ...Auscultate: Yes: Normoactive Bowel Sounds ...Palpate: Yes: Soft, Other (nontender) ...Rectal Exam: Yes: Guaiac Positive (black stool, 1+ prostate) Edema: No Peripheral Pulses WNL: Yes Neurological: Yes: Alert, Oriented Labs: CBC, BMP 11/29/17 16:35 11/29/17 09:50 INR, PTT INR 0.91 (0.83-1.09) 11/29/17 09:50 Problem List - Problems (1) Gastrointestinal hemorrhage with melena Assessment/Plan: I believe that Jsoé has bleeding due to a recurrent duodenal ulcer likely related to reacquiring H. pylori earlier this year. He could alternatively have an alcoholic gastritis, portal gastropathy, varices or bleeding related to GERD/ hiatal hernia. I agree with the pantoprazole drip and serial CBCs. I have discussed EGD and it's potential for such complications as perforation and hemorrhage with him and his son. He gave a verbal consent. Attempts will be made to schedule it for tomorrow. Will keep NPO for now. Code(s): K92.1 - MELENA (2) Chest pain Assessment/Plan: I agree with Dr Odonnell's opinion that José's description best fits musculoskeletal pain Code(s): R07.9 - CHEST PAIN, UNSPECIFIED Qualifiers: Chest pain type: unspecified Qualified Code(s): R07.9 - Chest pain, unspecified
[2017-11-30 00:31] LABS: BASO % 0.8 % (0-2.0); EOS % 2.9 % (0-4.5); HEMATOCRIT 28.7 % (35.4-49); HEMOGLOBIN 10.2 GM/dL (11.7-16.9); LYMPH % 28.2 % (8-40); MCHC 35.6 g/dl (32.0-35.9); MEAN CELL VOLUME 101.2 fl (80-96); MEAN PLT VOLUME 9.5 fl (7.5-11.1); NEUT % 63.1 % (42.8-82.8); PLATELET COUNT 131 K/MM3 (134-434); RBC 2.83 M/mm3 (4.00-5.60); RDW 12.3 % (11.9-15.9); WHITE BLOOD COUNT 5.5 K/mm3 (4.0-10.0)
[2017-11-30 03:12] LABS: BASO % 0.8 % (0-2.0); EOS % 2.8 % (0-4.5); HEMATOCRIT 28.4 % (35.4-49); LYMPH % 25.9 % (8-40); MCH 35.4 pg (25.7-33.7); MCHC 35.3 g/dl (32.0-35.9); MEAN CELL VOLUME 100.5 fl (80-96); MEAN PLT VOLUME 9.5 fl (7.5-11.1); MONO % 4.8 % (3.8-10.2); NEUT % 65.7 % (42.8-82.8); PLATELET COUNT 128 K/MM3 (134-434); RBC 2.83 M/mm3 (4.00-5.60); RDW 12.5 % (11.9-15.9); WHITE BLOOD COUNT 5.5 K/mm3 (4.0-10.0)
[2017-11-30] MEDS ORDERED: PANTOPRAZOLE SODIUM 40 MG VIAL ONE (05:13)
[2017-11-30 07:48] LABS: BASO % 0.9 % (0-2.0); EOS % 3.5 % (0-4.5); HEMATOCRIT 28.3 % (35.4-49); HEMOGLOBIN 10.2 GM/dL (11.7-16.9); LYMPH % 26.4 % (8-40); MCH 36.2 pg (25.7-33.7); MCHC 35.9 g/dl (32.0-35.9); MEAN CELL VOLUME 100.9 fl (80-96); MEAN PLT VOLUME 9.9 fl (7.5-11.1); MONO % 5.2 % (3.8-10.2); PLATELET COUNT 114 K/MM3 (134-434); RDW 12.3 % (11.9-15.9); WHITE BLOOD COUNT 4.8 K/mm3 (4.0-10.0)
[2017-11-30 08:10] LABS: ANION GAP 9 (8-16); BLOOD UREA NITROGEN 15 mg/dL (7-18); CALCIUM 7.9 mg/dL (8.5-10.1); CHLORIDE 109 mmol/L (98-107); CO2 25 mmol/L (21-32); CREATININE 0.7 mg/dL (0.7-1.3); GLUCOSE,RANDOM 93 mg/dL (74-106); POTASSIUM 3.9 mmol/L (3.5-5.1); SODIUM 143 mmol/L (136-145)
[2017-11-30] MEDS: PANTOPRAZOLE SODIUM 80 MG in SODIUM CHLORIDE 100 ML IVPB SCH (08:17)
[2017-11-30] MEDS: DEXTROSE 5%-NORMAL SALINE 1,000 ML IV SCH ×2 (08:25→16:28)
--- NOTE | 2017-11-30 08:31 | PN ---
Progress Note, Physician Chief Complaint: TELE not connected, data cannot be reviewed - Current Medication List Current Medications: Active Medications Pantoprazole Sodium 80 mg/ (Sodium Chloride) 100 mls @ 10 mls/hr IVPB Q10H [facility] Last Admin: 11/30/17 08:17 Dose: 10 mls/hr Dextrose/Sodium Chloride (D5-Ns -) 1,000 mls @ 75 mls/hr IV ASDIR [facility] Last Admin: 11/30/17 08:25 Dose: 75 mls/hr - Objective Vital Signs: Vital Signs Temperature 98.8 F 11/29/17 17:00 Pulse Rate 77 11/29/17 23:13 Respiratory Rate 18 11/29/17 23:13 Blood Pressure 110/55 11/29/17 23:13 O2 Sat by Pulse Oximetry (%) 99 11/29/17 23:20 Constitutional: Yes: Calm Eyes: Yes: EOM Intact Cardiovascular: Yes: Regular Rate and Rhythm Respiratory: Yes: CTA Bilaterally Gastrointestinal: Yes: Soft Edema: No Neurological: Yes: Alert, Oriented ...Motor Strength: WNL Labs: CBC, BMP 11/30/17 06:05 11/30/17 06:05 INR, PTT INR 0.91 (0.83-1.09) 11/29/17 09:50 Laboratory Tests 11/29/17 11/29/17 11/29/17 09:50 09:55 16:35 WBC Hgb Plt Count Creatine Kinase 83 55 Troponin I < 0.02 < 0.02 Stool Occult Blood Positive 11/30/17 11/30/17 00:05 06:05 WBC 4.8 Hgb 10.2 L Plt Count 114 L Creatine Kinase 50 Troponin I < 0.02 Stool Occult Blood Problem List - Problems (1) UGIB (upper gastrointestinal bleed) Code(s): K92.2 - GASTROINTESTINAL HEMORRHAGE, UNSPECIFIED (2) Chest pain Code(s): R07.9 - CHEST PAIN, UNSPECIFIED Qualifiers: Chest pain type: unspecified Qualified Code(s): R07.9 - Chest pain, unspecified Assessment/Plan IMP: Melena Chest pain, atypical REC: 1. Atypical chest pain: -positional, constant with no acute ST changes. Present for last 24 hours with negative TNI x3 -Likely related to GI pathology--> gastritis, perhaps peptic ulcer with referred pain. 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 ECG not consistent with pericarditis -Echo pending -Serial ECGs -GI eval 2. Melena: -New onset -Follow H/H - GI consult -PPI, NPO -No absolute cardiac contraindications to EGD
[2017-11-30 09:37] LABS: BASO % 0.8 % (0-2.0); EOS % 3.1 % (0-4.5); HEMATOCRIT 29.2 % (35.4-49); HEMOGLOBIN 10.4 GM/dL (11.7-16.9); LYMPH % 21.7 % (8-40); MCH 35.9 pg (25.7-33.7); MCHC 35.8 g/dl (32.0-35.9); MEAN CELL VOLUME 100.3 fl (80-96); MEAN PLT VOLUME 9.1 fl (7.5-11.1); MONO % 4.7 % (3.8-10.2); NEUT % 69.7 % (42.8-82.8); PLATELET COUNT 125 K/MM3 (134-434); RBC 2.91 M/mm3 (4.00-5.60); RDW 12.6 % (11.9-15.9); WHITE BLOOD COUNT 4.6 K/mm3 (4.0-10.0)
[2017-11-30] MEDS ORDERED: PROPOFOL 20 ML ONE ×3 (14:36)
--- NOTE | 2017-11-30 15:14 | PN ---
Progress Note (short form) - Note Progress Note: GI Procedure NOte: Please see EGD reprt. A prepyloric gastric ulcer was found to be the most likely source of recent bleeding. Duodentis was also noted. Will advance diet as tolerated. If stable can consider discharge in AM Problem List - Problems (1) Gastrointestinal hemorrhage with melena Code(s): K92.1 - MELENA (2) Chest pain Code(s): R07.9 - CHEST PAIN, UNSPECIFIED Qualifiers: Chest pain type: unspecified Qualified Code(s): R07.9 - Chest pain, unspecified
--- NOTE | 2017-11-30 15:53 | ECHO ---
Name: SWAPNA SURESH Exam:Adult Echocardiogram Study Date: 11/30/2017 10:10 AM Age: 57 yrs Reason For Study: Chest pain Height: 67 in Weight: 162 lb BSA: 1.8 m2 MMode/2D Measurements & Calculations RVDd: 2.5 cm Ao root diam: 3.7 cm IVSd: 0.90 cm LA dimension: 3.8 cm LVIDd: 4.5 cm ACS: 2.1 cm LVIDs: 2.6 cm LVPWd: 0.90 cm IVSs: 1.2 cm LVPWs: 1.3 cm EDV(Teich): 93.5 ml ESV(Teich): 23.6 ml Doppler Measurements & Calculations MV E max augustin: 66.4 cm/sec Ao V2 max: 121.0 cm/sec MV A max augustin: 75.5 cm/sec Ao max P.9 mmHg MV E/A: 0.88 Ao V2 mean: 90.1 cm/sec Ao mean P.6 mmHg Ao V2 VTI: 26.0 cm MR max augustin: 466.1 cm/sec TR max augustin: 224.0 cm/sec MR max P.1 mmHg TR max P.1 mmHg PI end-d augustin: 54.3 cm/sec Med Peak E' Augustin: 5.8 cm/sec Med E/e': 11.4 Lat Peak E' Augustin: 8.1 cm/sec Lat E/e': 8.2 Procedure A complete two-dimensional transthoracic echocardiogram was performed (2D, M-mode, Doppler and color flow Doppler). Left Ventricle The left ventricular size, thickness and function are normal. Ejection Fraction = 60%. E/A reversal c onsistent with but not diagnostic of poor LV compliance. Right Ventricle The right ventricle is normal in size and function. Atria Normal left and right atrial size and function. Mitral Valve The mitral valve is grossly normal. There is trace to mild mitral regurgitation. Tricuspid Valve The tricuspid valve is not well visualized, but is grossly normal. There is trace tricuspid regurgita tion. Right ventricular systolic pressure is 20 mmhg. Aortic Valve The aortic valve is trileaflet. Pulmonic Valve The pulmonic valve is not well visualized. Great Vessels The aortic root is normal size. Normal aortic arch, descending and ascending aorta. Pericardium/Pleura There is no pericardial effusion. There is no pleural effusion. Interpretation Summary The left ventricular size, thickness and function are normal Ejection Fraction = 60%. E/A reversal consistent with but not diagnostic of poor LV compliance The right ventricle is normal in size and function. Normal left and right atrial size and function. There is trace to mild mitral regurgitation. There is trace tricuspid regurgitation. Right ventricular systolic pressure is 20 mmhg. MD Calderon Issa 11/30/2017 03:52 PM
--- NOTE | 2017-11-30 16:28 | EKG ---
Test Reason : Blood Pressure : / mmHG Vent. Rate : 075 BPM Atrial Rate : 075 BPM P-R Int : 150 ms QRS Dur : 088 ms QT Int : 376 ms P-R-T Axes : 047 -03 051 degrees QTc Int : 419 ms NORMAL SINUS RHYTHM NORMAL ECG WHEN COMPARED WITH ECG OF 24-MAY-2012 11:36, NO SIGNIFICANT CHANGE WAS FOUND Confirmed by Calderon Issa MD ([id number]) on 11/30/2017 4:27:28 PM Referred By: Confirmed By:Calderon Issa MD
[2017-11-30] MEDS: MAG HYDROX/AL HYDROX/SIMETH 30 ML UNIT-DOSE CUP PO SCH ×2 (17:21→23:10)
[2017-11-30 17:32] LABS: BASO % 0.9 % (0-2.0); EOS % 2.3 % (0-4.5); HEMATOCRIT 30.4 % (35.4-49); HEMOGLOBIN 10.6 GM/dL (11.7-16.9); LYMPH % 18.2 % (8-40); MCH 35.4 pg (25.7-33.7); MEAN CELL VOLUME 101.2 fl (80-96); MONO % 5.4 % (3.8-10.2); NEUT % 73.2 % (42.8-82.8); PLATELET COUNT 133 K/MM3 (134-434); RBC 3.01 M/mm3 (4.00-5.60); RDW 12.7 % (11.9-15.9); WHITE BLOOD COUNT 5.2 K/mm3 (4.0-10.0)
--- NOTE | 2017-11-30 19:02 | PN ---
Teaching Attending Note Name of Resident: Pedro Pablo Nava ATTENDING PHYSICIAN STATEMENT I saw and evaluated the patient. I reviewed the resident's note and discussed the case with the resident. I agree with the resident's findings and plan as documented. SUBJECTIVE:asymptomatic. states CP and dizzyness has resolved. denies Cp, SOb, fever, chills, N/V/C/D OBJECTIVE: Last Vital Signs Temp Pulse Resp BP Pulse Ox 97.9 F 88 18 137/66 99 11/30/17 17:35 11/30/17 17:35 11/30/17 17:35 11/30/17 17:35 11/30/17 15:27 general NAD CV S1 S2 RRR no murmur/rub/gallop no chest wall tenderness Lungs CTA B/L no wheezing/rale/rhonchi Abdomen soft NT/ND ASSESSMENT AND PLAN: 57yo M with PMH dyslipidemia, PUD, treatment for Hpylori a year ago presenting with chest pain and black stools 1. Upper GI bleed- s/p EGD showing duodenitis and prepyloric gastric ulcer. PPI ggt switched to po. Hgb has been stable. will advance diet. if reamins stable plan to d/c in am 2. CP- likely related to gastric ulcer. echo done and pending read. cardiac enzymes neg x3. cardio on board 3. spoke with present at bedside. all questions answered. pending d/c in AM if tolerates diet
[2017-11-30] MEDS: PANTOPRAZOLE 40 MG TABLET (FP) PO SCH (21:12)
--- NOTE | 2017-11-30 21:12 | PN ---
Physical Exam: SUBJECTIVE: Patient seen and examined at bedside. pt is currently asymptomatic and says his CP and dizziness has resolved. denies fever, chills, CP, SOB, N/V/ D, urinary sxs OBJECTIVE: Vital Signs Period Temp Pulse Resp BP Sys/Cross Pulse Ox Last 24 Hr 97.5 F-98.6 F 69-88 18-20 110-137/55-82 97-100 GENERAL: Awake, alert, and fully oriented, in no acute distress. mostly [place] speaking HEAD: Normal with no signs of trauma. EYES: Pupils equal, round and reactive to light, extraocular movements intact, sclera anicteric, conjunctiva clear. No lid lag. EARS, NOSE, THROAT: nares patent, oropharynx clear without exudates. Moist mucous membranes. NECK: Normal range of motion, supple without lymphadenopathy, JVD, or masses. LUNGS: Breath sounds equal, clear to auscultation bilaterally. No wheezes, and no crackles. No accessory muscle use. HEART: RRR, normal S1 and S2 without murmur, rub or gallop. ABDOMEN: Soft, nontender, not distended, normoactive bowel sounds, no guarding, no rebound, no masses. No hepatomegaly or splenomegaly. MUSCULOSKELETAL: Normal range of motion at all joints. No bony deformities or tenderness. UPPER EXTREMITIES: 2+ radial pulses, warm, well-perfused. No cyanosis. No clubbing. No peripheral edema. LOWER EXTREMITIES: 2+ dp pulses, warm, well-perfused. No calf tenderness. No peripheral edema. NEUROLOGICAL: Cranial nerves II-XII intact. Normal speech. facial symmetry, strength grossly intact SKIN: Warm, dry, normal turgor, no rashes or lesions noted, normal capillary refill. Laboratory Results - last 24 hr 11/29/17 11/30/17 11/30/17 16:35 00:05 00:05 WBC 5.5 RBC 2.83 L Hgb 10.2 L Hct 28.7 L MCV 101.2 H MCH 36.0 H MCHC 35.6 RDW 12.3 Plt Count 131 L MPV 9.5 Absolute Neuts (auto) 3.5 Neutrophils % 63.1 Lymphocytes % 28.2 Monocytes % 5.0 Eosinophils % 2.9 Basophils % 0.8 Nucleated RBC % 0 Retic Count Sodium Potassium Chloride Carbon Dioxide Anion Gap BUN Creatinine Creat Clearance w eGFR Random Glucose Hemoglobin A1c % 4.5 L Calcium Ferritin Creatine Kinase 50 Troponin I < 0.02 11/30/17 11/30/17 11/30/17 02:45 06:05 06:05 WBC 5.5 4.8 RBC 2.83 L 2.80 L Hgb 10.0 L 10.2 L Hct 28.4 L 28.3 L MCV 100.5 H 100.9 H MCH 35.4 H 36.2 H MCHC 35.3 35.9 RDW 12.5 12.3 Plt Count 128 L 114 L MPV 9.5 9.9 Absolute Neuts (auto) 3.6 3.1 Neutrophils % 65.7 64.0 Lymphocytes % 25.9 26.4 Monocytes % 4.8 5.2 Eosinophils % 2.8 3.5 Basophils % 0.8 0.9 Nucleated RBC % 0 0 Retic Count 2.27 H Sodium Potassium Chloride Carbon Dioxide Anion Gap BUN Creatinine Creat Clearance w eGFR Random Glucose Hemoglobin A1c % Calcium Ferritin Creatine Kinase Troponin I 11/30/17 11/30/17 11/30/17 06:05 09:28 16:10 WBC 4.6 5.2 RBC 2.91 L 3.01 L Hgb 10.4 L 10.6 L Hct 29.2 L 30.4 L MCV 100.3 H 101.2 H MCH 35.9 H 35.4 H MCHC 35.8 35.0 RDW 12.6 12.7 Plt Count 125 L 133 L MPV 9.1 10.0 Absolute Neuts (auto) 3.2 3.8 Neutrophils % 69.7 73.2 Lymphocytes % 21.7 18.2 Monocytes % 4.7 5.4 Eosinophils % 3.1 2.3 Basophils % 0.8 0.9 Nucleated RBC % 0 0 Retic Count Sodium 143 Potassium 3.9 Chloride 109 H Carbon Dioxide 25 Anion Gap 9 BUN 15 Creatinine 0.7 Creat Clearance w eGFR > 60 Random Glucose 93 Hemoglobin A1c % Calcium 7.9 L Ferritin 320.5 H Creatine Kinase Troponin I Active Medications Generic Name Dose Route Start Last Admin Trade Name Freq PRN Reason Stop Dose Admin Al Hydroxide/Mg Hydroxide 30 ml 11/30/17 16:30 11/30/17 17:21 Mylanta Oral Suspension - PO 30 ml Q6HPO BRYANNA Administration Dextrose/Sodium Chloride 1,000 mls @ 75 mls/hr 11/29/17 14:15 11/30/17 16:28 D5-Ns - IV 75 mls/hr ASDIR BRYANNA Administration Pantoprazole Sodium 40 mg 11/30/17 22:00 Protonix - PO BID BRYANNA ASSESSMENT/PLAN: 57 yr old man with PMH dyslipidemia, PUD, treatment for Hpylori a year ago p/w with chest pain and melena for 1 day admitted to telemetry for further management. #Upper GI bleed - FOBT pos, was made NPO and given fluids overnight, now s/p EGD showing duodenitis and prepyloric gastric ulcer -GI consult -PPI ggt switched to po -Hgb has been stable -advance diet #Chest Pain- likely 2/2 gastric ulcer. possibly from blood loss as well -echo done and pending read. -cardiac enzymes neg x3. -cardio consult -telemetry monitoring -lipid profile and A1c to risk stratify #macrocytic anemia - likely UGI, could be from ETOH use as well. - iron studies, vit b12, Type&screen, trend h/h #FEN -IV D5 NS -noah replete prn -soft diet, advance as tolerated #DVTppx -cds due to acute GI bleed #Dispo -pending d/c in AM if tolerates diet Visit type - Emergency Visit Emergency Visit: Yes ED Registration Date: 11/29/17 Care time: The patient presented to the Emergency Department on the above date and was hospitalized for further evaluation of their emergent condition. - New Patient This patient is new to me today: Yes Date on this admission: 11/30/17 - Critical Care Critical Care patient: No
--- NOTE | 2017-11-30 22:20 | PN ---
Progress Note (short form) - Note Progress Note: GI NOte; No bleeding in fact no BMs. Tolerated dinner. Reminded José that he aureliano need a repat EGD in 3 months to exclude a malignant ulcer. He will make an appointment with my office. No GI objections to discharge in AM if remains stable. Problem List - Problems (1) Gastrointestinal hemorrhage with melena Code(s): K92.1 - MELENA (2) Chest pain Code(s): R07.9 - CHEST PAIN, UNSPECIFIED Qualifiers: Chest pain type: unspecified Qualified Code(s): R07.9 - Chest pain, unspecified
[2017-12-01] MEDS: DEXTROSE 5%-NORMAL SALINE 1,000 ML IV SCH (05:35)
[2017-12-01] MEDS: MAG HYDROX/AL HYDROX/SIMETH 30 ML UNIT-DOSE CUP PO SCH ×2 (05:37→11:39)
[2017-12-01 06:06] LABS: SERUM IRON SATURATION 47 % (15-55); TOTAL IRON BINDING CAPACITY 289 ug/dL (250-450); UIBC 153 ug/dL (111-343)
[2017-12-01 07:28] LABS: BASO % 0.6 % (0-2.0); EOS % 3.1 % (0-4.5); HEMATOCRIT 26.8 % (35.4-49); HEMOGLOBIN 9.5 GM/dL (11.7-16.9); LYMPH % 19.1 % (8-40); MCH 36.1 pg (25.7-33.7); MCHC 35.6 g/dl (32.0-35.9); MEAN CELL VOLUME 101.5 fl (80-96); MEAN PLT VOLUME 9.3 fl (7.5-11.1); NEUT % 71.2 % (42.8-82.8); PLATELET COUNT 117 K/MM3 (134-434); RBC 2.64 M/mm3 (4.00-5.60); RDW 12.4 % (11.9-15.9); WHITE BLOOD COUNT 4.3 K/mm3 (4.0-10.0)
[2017-12-01 08:33] LABS: CHLORIDE 107 mmol/L (98-107); POTASSIUM 3.7 mmol/L (3.5-5.1); SODIUM 138 mmol/L (136-145)
[2017-12-01 08:47] LABS: ANION GAP 6 (8-16); BLOOD UREA NITROGEN 11 mg/dL (7-18); CALCIUM 8.1 mg/dL (8.5-10.1); CO2 25 mmol/L (21-32); CREATININE 0.8 mg/dL (0.7-1.3); GLUCOSE,RANDOM 109 mg/dL (74-106)
[2017-12-01] MEDS: PANTOPRAZOLE 40 MG TABLET (FP) PO SCH (09:56)
[2017-12-01 11:21] VITALS: BP 112/67; PULSE 82; TEMP 98.3
--- NOTE | 2017-12-01 12:02 | PN ---
GI Progress Note Subjective: GI NOte: Passes a small amount of old blood today but no overt bleeding. No pain. Tolerating diet. Believe Hb drop is dilutional. Instructed patient to start Feosol and Vitamin C once daily once stool becomes brown and to increas to BID in 1 week. Also instructed to take Pantoprazole until an EGD is repeated in 3 months. Advised to avoid NSAIDs. - Objective Vital Signs: Vital Signs Temperature 98.3 F 12/01/17 10:00 Pulse Rate 82 12/01/17 10:00 Respiratory Rate 18 12/01/17 10:00 Blood Pressure 112/67 12/01/17 10:00 O2 Sat by Pulse Oximetry (%) 95 11/30/17 21:17 Laboratory Tests 11/30/17 12/01/17 16:10 06:30 Hgb 10.6 L 9.5 L Constitutional: Calm ...Auscultate: Yes: Normoactive Bowel Sounds ...Palpate: Yes: Soft, Other (nontender) Labs: CBC, BMP 12/01/17 06:30 12/01/17 06:30 INR, PTT INR 0.91 (0.83-1.09) 11/29/17 09:50 Problem List - Problems (1) Gastrointestinal hemorrhage with melena Assessment/Plan: Resolved gastric ulcer bleed. Can discharge once repeat CBC returns if not major change. Code(s): K92.1 - MELENA (2) Chest pain Code(s): R07.9 - CHEST PAIN, UNSPECIFIED Qualifiers: Chest pain type: unspecified Qualified Code(s): R07.9 - Chest pain, unspecified
[2017-12-01 13:09] LABS: BASO % 0.5 % (0-2.0); EOS % 2.4 % (0-4.5); HEMATOCRIT 30.4 % (35.4-49); HEMOGLOBIN 10.7 GM/dL (11.7-16.9); LYMPH % 24.4 % (8-40); MCHC 35.4 g/dl (32.0-35.9); MEAN CELL VOLUME 101.8 fl (80-96); MEAN PLT VOLUME 9.6 fl (7.5-11.1); MONO % 5.7 % (3.8-10.2); PLATELET COUNT 158 K/MM3 (134-434); RBC 2.98 M/mm3 (4.00-5.60); RDW 12.6 % (11.9-15.9); WHITE BLOOD COUNT 5.9 K/mm3 (4.0-10.0)
--- NOTE | 2017-12-01 14:12 | PN ---
Teaching Attending Note Name of Resident: Pedro Pablo Nava ATTENDING PHYSICIAN STATEMENT I saw and evaluated the patient. I reviewed the resident's note and discussed the case with the resident. I agree with the resident's findings and plan as documented. SUBJECTIVE:asymptomatic. did have a black stool this AM. no pain when eating. denies CP, SOB, fever, chills, N/V/C/D OBJECTIVE: Last Vital Signs Temp Pulse Resp BP Pulse Ox 98.3 F 82 18 112/67 95 12/01/17 10:12/01/17 10:00 12/01/17 10:12/01/17 10:00 11/30/17 21:17 general NAD CV S1 S2 RRR no murmur/rub/gallop no chest wall tenderness Lungs CTA B/L no wheezing/rale/rhonchi Abdomen soft NT/ND ASSESSMENT AND PLAN: 57yo M with PMH dyslipidemia, PUD, treatment for Hpylori a year ago presenting with chest pain and black stools 1. Upper GI bleed- s/p EGD showing duodenitis and prepyloric gastric ulcer. tolerating diet. slight drop in Hgb this AM. will repeat. cont PPI po BID with vit C. will repeat EGD in 3 months to ensure ulcer has cleared. 2. CP- likely related to gastric ulcer. echo done. cardiac enzymes neg x3. cardio on board 3. will repeat CBC if remains stable can d/c later today
--- NOTE | 2017-12-01 14:22 | DS ---
Physical Exam: SUBJECTIVE: Patient seen and examined at bedside. pt is currently asymptomatic and says his CP and dizziness has resolved. denies fever, chills, CP, SOB, N/V/D, urinary sxs OBJECTIVE: Vital Signs Period Temp Pulse Resp BP Sys/Cross Pulse Ox Last 24 Hr 97.5 F-98.5 F 69-88 18-20 102-137/56-82 95-100 PHYSICAL EXAM GENERAL: Awake, alert, and fully oriented, in no acute distress. mostly [place] speaking HEAD: Normal with no signs of trauma. EYES: Pupils equal, round and reactive to light, extraocular movements intact, sclera anicteric, conjunctiva clear. No lid lag. EARS, NOSE, THROAT: nares patent, oropharynx clear without exudates. Moist mucous membranes. NECK: Normal range of motion, supple without lymphadenopathy, JVD, or masses. LUNGS: Breath sounds equal, clear to auscultation bilaterally. No wheezes, and no crackles. No accessory muscle use. HEART: RRR, normal S1 and S2 without murmur, rub or gallop. ABDOMEN: Soft, nontender, not distended, normoactive bowel sounds, no guarding, no rebound, no masses. No hepatomegaly or splenomegaly. MUSCULOSKELETAL: Normal range of motion at all joints. No bony deformities or tenderness. UPPER EXTREMITIES: 2+ radial pulses, warm, well-perfused. No cyanosis. No clubbing. No peripheral edema. LOWER EXTREMITIES: 2+ dp pulses, warm, well-perfused. No calf tenderness. No peripheral edema. NEUROLOGICAL: Cranial nerves II-XII intact. Normal speech. facial symmetry, strength grossly intact SKIN: Warm, dry, normal turgor, no rashes or lesions noted, normal capillary refill. LABS Laboratory Results - last 24 hr 11/29/17 11/30/17 12/01/17 09:50 16:10 06:30 WBC 5.2 4.3 RBC 3.01 L 2.64 L Hgb 10.6 L 9.5 L Hct 30.4 L 26.8 L MCV 101.2 H 101.5 H MCH 35.4 H 36.1 H MCHC 35.0 35.6 RDW 12.7 12.4 Plt Count 133 L 117 L MPV 10.0 9.3 Absolute Neuts (auto) 3.8 3.0 Neutrophils % 73.2 71.2 Lymphocytes % 18.2 19.1 Monocytes % 5.4 6.0 Eosinophils % 2.3 3.1 Basophils % 0.9 0.6 Nucleated RBC % 0 0 Retic Count Sodium Potassium Chloride Carbon Dioxide Anion Gap BUN Creatinine Creat Clearance w eGFR Random Glucose Calcium Iron 136 TIBC 289 Iron Saturation 47 12/01/17 12/01/17 12/01/17 06:30 06:30 12:47 WBC 5.9 RBC 2.98 L Hgb 10.7 L Hct 30.4 L MCV 101.8 H MCH 36.0 H MCHC 35.4 RDW 12.6 Plt Count 158 D MPV 9.6 Absolute Neuts (auto) 3.9 Neutrophils % 67.0 Lymphocytes % 24.4 D Monocytes % 5.7 Eosinophils % 2.4 Basophils % 0.5 Nucleated RBC % 0 Retic Count 3.15 H D Sodium 138 Potassium 3.7 Chloride 107 Carbon Dioxide 25 Anion Gap 6 L BUN 11 Creatinine 0.8 Creat Clearance w eGFR > 60 Random Glucose 109 H Calcium 8.1 L Iron TIBC Iron Saturation HOSPITAL COURSE: Date of Admission:11/29/17 Date of Discharge: 12/01/17 57 yr old M with PMH dyslipidemia, PUD, treatment for Hpylori a year ago p/w with chest pain and melena for 1 day admitted to telemetry for further management. Admitted for chest pain and Upper GI bleed. ACS was r/o. Echo was nl w/ EF 60%. Pt was seen by GI and underwent EGD which showed duodenitis and prepyloric gastric ulcer. Pt started on protonix and tolerated PO. Hgb stabilized and pt remained asxs. Chest pain likely 2/2 gastric ulcer and possibly from blood loss as well. pt normal A1c 4.5, Pt is scheduled for f/u w/ Dr Rothman for repeat EGD in 3 mo. Pt is stable and ready for discharge Minutes to complete discharge: 35 Discharge Summary Reason For Visit: UPPER GASTROINTESTINAL HEMORRHAGE, CHEST PAIN Condition: Stable - Instructions Diet, Activity, Other Instructions: You were admitted for chest pain and blood in your stools. Your chest pain got better and we monitored your heart and did lab tests all of which came back normal. You underwent endoscopy with Dr. Rothman and were found to have stomach ulcers. You will need to follow up with Dr. Rothman in 3 months for a repeat endoscopy. In the meantime we will start you on a new medication called protonix ( pantoprazole). You will need to be on this medication until you have your repeat EGD. Please start taking iron/Feosol and Vitamin C once daily once stool becomes brown and to increase to twice per week in 1 week. Please start using laxatives as need if you develop any constipation Please avoid taking NSAIDs such as ibuprofen/advil, aleive, naproxen, etc... Please avoid spicy and acidic foods. Do not be concerned if you see black/dark stools for 1-2 weeks. this is considered normal. Also note that the iron may also turn your stool black. If you experience any more chest pain, coughing up or vomiting blood, abdominal pain, or bright red blood in your stools, please call 911 or come to the ER immediately Referrals: Sajan Rothman MD [Staff Physician] - 03/03/18 Alexei Thompson MD [Primary Care Provider] - 1 Week Disposition: HOME - Home Medications Comprehensive Discharge Medication List: Ambulatory Orders Ascorbic Acid [Vitamin C] 250 mg PO BID 30 Days #60 tablet 12/01/17 Ferrous Sulfate [Feosol] 325 mg PO BID 30 Days #60 tablet 12/01/17 Pantoprazole Sodium 40 mg PO BID 30 Days #60 tablet. 12/01/17 This patient is new to me today: Yes Date on this admission: 12/01/17 Emergency Visit: Yes ED Registration Date: 11/29/17 Care time: The patient presented to the Emergency Department on the above date and was hospitalized for further evaluation of their emergent condition. Critical Care patient: No - Discharge Referral Referred to [facility] Med P.C.: No
--- NOTE | 2017-12-02 15:07 | PATH ---
Surgical Pathology Report Patient Name: SWAPNA SURESH Med. Rec. #: [id number] /Age/Gender: 1960 (Age: 57) / M Account: [id number] Location: [facility] MED/SURG Taken: 11/30/2017 Received: 12/01/2017 Reported: 12/02/2017 Physicians: Sajan Rothman M.D. PHYSICIAN EMERGENCY DEPT Specimen(s) Received BX ANTRUM Clinical History GI bleeding Postoperative diagnosis: Gastric ulcer, duodenitis Final Diagnosis STOMACH ANTRUM, BIOPSY: GASTRIC ANTRAL MUCOSA WITH MODERATE AND AN CHRONIC ACTIVE GASTRITIS. IMMUNOHISTOCHEMICAL STAIN FOR H. PYLORI IS POSITIVE (RARE). Electronically Signed Kelsey Bryant M.D. Gross Description Received in formalin, labeled "biopsy antrum" are 2 crowell, irregular portions of soft tissue measuring 0.3 and 0.4 cm. in greatest dimension. The specimens are submitted in toto in one cassette. 12/01/2017 [facility]12/01/2017
== END 2017-12-01 15:02 | disposition home or self-care (01) | DRG 378 ==
LOC: JER 08:31 → JERBED 11:20 → J7W 11-30 15:30
PROVIDERS: ADMIT Hospitalist; ATTEND Internal Medicine
PROC: 0DD68ZX Extraction of Stomach, Via Natural or Artificial Opening Endoscopic, Diagnostic (ICD-10-PCS; principal; 2017-11-30 13:45)
DX: K25.4 Chronic or unspecified gastric ulcer with hemorrhage (principal); R71.0 Precipitous drop in hematocrit; R07.9 Chest pain, unspecified; E78.5 Hyperlipidemia, unspecified; R07.89 Other chest pain; K29.50 Unspecified chronic gastritis without bleeding; B96.81 Helicobacter pylori [H. pylori] as the cause of diseases classified elsewhere; K29.80 Duodenitis without bleeding
CPT/HCPCS: 36415; 71046-TC-FY; 80048; 80053; 80061; 82272; 82550; 82607; 82728; 83036; 83540; 83550; 83721; 84484; 85025; 85044; 85610; 86850; 86900; 86901; 87389; 88305-TC; 93005; 93010; 93306-TC; 93880-TC; 99285-25

== ENCOUNTER 2018-04-06 07:10 | Day surgery (SDC) | payer OTHER ==
[2018-04-05 12:54] VITALS: BMI 25.9
[2018-04-06 08:30] VITALS: TEMP 97.3
[2018-04-06 10:13] VITALS: BP 126/73; PULSE 60
--- NOTE | 2018-04-07 16:55 | PATH ---
Surgical Pathology Report Patient Name: SWAPNA SURESH [facility] Rec. #: [id number] /Age/Gender: 1960 (Age: 57) / M Account: [id number] Location: [facility]-ENDOSCOPY Taken: 04/06/2018 Received: 04/06/2018 Reported: 04/07/2018 Physicians: Sajan Rothman M.D. Specimen(s) Received BX GASTRIC ANTRUM Clinical History Gastric ulcer bleed on 11/30/17 Postoperative diagnosis: Healed gastric ulcer, hiatal hernia Final Diagnosis GASTRIC ANTRUM SITE OF OLD ULCER, BIOPSY: GASTRIC MUCOSA WITH ACTIVE CHRONIC GASTRITIS. IMMUNOSTAIN FOR H. PYLORI IS NEGATIVE. NEGATIVE FOR INTESTINAL METAPLASIA. Electronically Signed Lolly Lockwood M.D. Gross Description Received in formalin, labeled "biopsy gastric antrum site of old ulcer" are 4 crowell, irregular portions of soft tissue ranging from 0.2-0.4 cm. in greatest dimension. The specimens are submitted in toto in one cassette. 04/06/2018 [facility]04/06/2018
== END 2018-04-06 09:20 | disposition home or self-care (01) ==
LOC: JASU-ENDO 07:10
PROVIDERS: ATTEND Internal Medicine Gastroenterology
PROC: 0DB68ZX Excision of Stomach, Via Natural or Artificial Opening Endoscopic, Diagnostic (ICD-10-PCS; principal; 2018-04-06 08:00)
DX: K29.60 Other gastritis without bleeding (principal)
CPT/HCPCS: 88305-TC; 88342-TC

== ENCOUNTER 2023-10-02 21:45 | Emergency (ER) | payer OTHER ==
[2023-10-02 21:52] VITALS: BP 121/75; PULSE 100; RESP 16; TEMP 99.8; BMI 26.3
[2023-10-02] MEDS ORDERED: ACETAMINOPHEN INJECTION 100 ML IVPB ONE (23:10)
[2023-10-02] MEDS ORDERED: ONDANSETRON 4 MG/2 ML VIAL ONE (23:10)
[2023-10-02] MEDS ORDERED: FAMOTIDINE 20 MG/50 ML IVPB 20 MG/50 ML MG IVPB ONE (23:11)
[2023-10-02 23:13] LABS: BASO % 0.3 % (0-2.0); EOS % 0.3 % (0-4.5); HEMATOCRIT 41.5 % (35.4-49); HEMOGLOBIN 14.5 GM/dL (11.7-16.9); MCH 35.5 pg (25.7-33.7); MEAN CELL VOLUME 101.4 fl (80-96); MEAN PLT VOLUME 8.1 fl (7.5-11.1); MONO % 4.9 % (3.8-10.2); NEUT % 87.5 % (42.8-82.8); PLATELET COUNT 153 10^3/uL (134-434); RBC 4.09 M/mm3 (4.00-5.60); RDW 12.5 % (11.9-15.9); WHITE BLOOD COUNT 6.4 K/mm3 (4.0-10.0)
[2023-10-02 23:20] LABS: INR 0.93 (0.83-1.09); PROTHROMBIN TIME (PATIENT) 10.7 SEC (9.7-13.0)
[2023-10-02] MEDS: ONDANSETRON 4 MG/2 ML VIAL IVPUSH ONE (23:21)
[2023-10-02] MEDS: SODIUM CHLORIDE 1,000 ML IV STA (23:21)
[2023-10-02] MEDS: ACETAMINOPHEN 1000 MG/100 ML BAG IVPB ONE (23:21)
[2023-10-02 23:22] LABS: ACTIVATED PTT 25.7 SECONDS (25.2-36.5)
[2023-10-02 23:37] LABS: POTASSIUM 3.3 mmol/L (3.5-5.1)
[2023-10-02 23:39] LABS: CALCIUM 8.1 mg/dL (8.5-10.1)
[2023-10-02 23:40] LABS: ALBUMIN 3.3 g/dl (3.4-5.0); BLOOD UREA NITROGEN 13.3 mg/dL (7-18); MAGNESIUM 1.9 mg/dL (1.8-2.4)
[2023-10-02 23:43] LABS: CREATININE 0.8 mg/dL (0.55-1.3)
[2023-10-02 23:44] LABS: BILIRUBIN,TOTAL 0.8 mg/dL (0.2-1); TOT PROT 6.7 g/dl (6.4-8.2)
[2023-10-03] MEDS: FAMOTIDINE 20 MG/50 ML IVPB 20 MG/50 ML MG IVPB ONE (00:05)
== END 2023-10-03 01:01 | disposition home or self-care (01) ==
LOC: JER 21:45
PROC: 3E033GC Introduction of Other Therapeutic Substance into Peripheral Vein, Percutaneous Approach (ICD-10-PCS; principal; 2023-10-02)
PROC: 3E033GC Introduction of Other Therapeutic Substance into Peripheral Vein, Percutaneous Approach (ICD-10-PCS; 2023-10-02)
PROC: 3E033NZ Introduction of Analgesics, Hypnotics, Sedatives into Peripheral Vein, Percutaneous Approach (ICD-10-PCS; 2023-10-02)
DX: E86.0 Dehydration (principal); R55 Syncope and collapse; A08.4 Viral intestinal infection, unspecified; R11.2 Nausea with vomiting, unspecified; R19.7 Diarrhea, unspecified; Z20.822 Contact with and (suspected) exposure to COVID-19
CPT/HCPCS: 0241U-QW; 36415; 70450-TC; 71046-TC-FY; 80053; 83690; 83735; 84484; 85025; 85610; 85730; 93005; 93010; 99285-25; J0131

== ENCOUNTER 2024-02-18 04:34 | Day surgery (SDC) | payer OTHER ==
[2024-02-14 15:00] VITALS: BMI 25.2
[2024-02-18 12:26] VITALS: RESP 18; TEMP 98.2
[2024-02-18 13:29] LABS: INR 0.98 (0.83-1.09); PROTHROMBIN TIME (PATIENT) 11.3 SEC (9.7-13.0)
[2024-02-18 13:30] LABS: BASO % 0.7 % (0-2.0); EOS % 0.9 % (0-4.5); HEMATOCRIT 41.9 % (35.4-49); HEMOGLOBIN 14.5 GM/dL (11.7-16.9); LYMPH % 20.8 % (8-40); MCHC 34.5 g/dl (32.0-35.9); MEAN CELL VOLUME 101.3 fl (80-96); MEAN PLT VOLUME 8.4 fl (7.5-11.1); MONO % 3.8 % (3.8-10.2); NEUT % 73.8 % (42.8-82.8); PLATELET COUNT 192 10^3/uL (134-434); RBC 4.13 M/mm3 (4.00-5.60); RDW 13.7 % (11.9-15.9); WHITE BLOOD COUNT 6.6 K/mm3 (4.0-10.0)
[2024-02-18 13:50] LABS: CHLORIDE 106 mmol/L (98-107); SODIUM 137 mmol/L (136-145)
[2024-02-18 13:52] LABS: CALCIUM 8.9 mg/dL (8.5-10.1)
[2024-02-18 13:53] LABS: ALBUMIN 3.8 g/dl (3.4-5.0); ANION GAP 6 mmol/L (4-13); BLOOD UREA NITROGEN 14.9 mg/dL (7-18); CO2 25 mmol/L (21-32); GLUCOSE,RANDOM 157 mg/dL (74-106)
[2024-02-18 13:56] LABS: CREATININE 1.1 mg/dL (0.55-1.3); SGOT/AST 53 U/L (15-37); SGPT/ALT 61 U/L (13-61)
[2024-02-18 13:57] LABS: TOT PROT 7.1 g/dl (6.4-8.2)
[2024-02-18 13:59] LABS: ALK PHOS 86 U/L (45-117)
[2024-02-18 14:26] VITALS: BP 125/64; PULSE 63
== END 2024-02-18 13:00 | disposition home or self-care (01) ==
LOC: JASU-ENDO 04:34
PROVIDERS: ATTEND Internal Medicine Gastroenterology
PROC: 0D9Q8ZX Drainage of Anus, Via Natural or Artificial Opening Endoscopic, Diagnostic (ICD-10-PCS; 2024-02-18)
PROC: 0DBP8ZX Excision of Rectum, Via Natural or Artificial Opening Endoscopic, Diagnostic (ICD-10-PCS; principal; 2024-02-18 11:00)
DX: Z12.11 Encounter for screening for malignant neoplasm of colon (principal); D12.8 Benign neoplasm of rectum; Z86.0100 Personal history of colon polyps, unspecified
CPT/HCPCS: 36415; 80053; 85025; 85610; 86140; 88305-TC